=== PATIENT | female | born 1960 | race Caucasian/White ===

== ENCOUNTER 2019-06-29 08:07 | Day surgery (SDC) | payer BC ==
[2019-06-29] MEDS ORDERED: Sodium Chloride 0.9% 1,000 ML IV SCH (08:45)
[2019-06-29] MEDS ORDERED: Propofol 200 MG/20 ML SDV ONE (09:22)
[2019-06-29] MEDS ORDERED: fentaNYL 100 MCG/2 ML SDV ONE (09:23)
[2019-06-29] MEDS ORDERED: Midazolam 1 MG/ML 2 ML SDV ONE (09:23)
--- NOTE | 2019-06-29 15:23 | OR ---
DATE OF PROCEDURE: 06/29/2019 SURGEON: Luis Agudelo MD PROCEDURE: Colonoscopy. FINDINGS: Normal colonoscopy. PREOPERATIVE DIAGNOSIS: Screening/history of polyps/family history of colorectal cancer. POSTOPERATIVE DIAGNOSIS: Screening/history of polyps/family history of colorectal cancer. RISKS: Risks, benefits, alternatives, and limitations including, but not limited to infection, bleeding, and perforation were explained to the patient, who wished to proceed. DESCRIPTION OF PROCEDURE: The patient was placed in left lateral decubitus position. Digital rectal exam was performed without abnormality. The scope was introduced and advanced atraumatically to the ileocecal valve. The scope was brought back through the ascending, transverse, descending colon, and retroflexed. No evidence of old or new blood. No masses. No polyps. The patient tolerated the procedure well. Luis Agudelo MD /[id number]
== END 2019-06-29 11:12 | disposition home or self-care (01) ==
LOC: JP.SDS 08:07
PROVIDERS: ATTEND Surgery
DX: Z12.11 Encounter for screening for malignant neoplasm of colon (principal); J45.909 Unspecified asthma, uncomplicated; Z86.010 Personal history of colon polyps; Z80.0 Family history of malignant neoplasm of digestive organs
CPT/HCPCS: J2250; J2704; J3010; J7030

== ENCOUNTER 2024-12-01 06:22 | Day surgery (SDC) | payer BC, OTHER ==
[2024-12-01] MEDS ORDERED: Propofol 200 MG/20 ML SDV ONE (06:51)
[2024-12-01] MEDS ORDERED: fentaNYL 50 MCG/ML SDV ONE (06:51)
[2024-12-01] MEDS ORDERED: Midazolam 1 MG/ML 2 ML SDV ONE (06:51)
[2024-12-01] MEDS: Lactated Ringers 1,000 ML IV SCH (06:52)
== END 2024-12-01 09:15 | disposition home or self-care (01) ==
LOC: JP.SDS 06:22
PROVIDERS: ATTEND Surgery
DX: Z12.11 Encounter for screening for malignant neoplasm of colon (principal); D12.3 Benign neoplasm of transverse colon; K57.30 Diverticulosis of large intestine without perforation or abscess without bleeding; Z80.0 Family history of malignant neoplasm of digestive organs; J45.909 Unspecified asthma, uncomplicated; Z88.8 Allergy status to other drugs, medicaments and biological substances
CPT/HCPCS: 45385; J2250; J2704; J3010; J7120; 88305